=== PATIENT | female | born 1950 | race African-American/Black ===

== ENCOUNTER 2016-09-15 10:10 | Emergency (ER) | payer OTHER ==
[~2016-09-15] VITALS: Ht 162.6 cm; Wt 73.0 kg
[2016-09-15] MEDS ORDERED: NOR5 PO (10:34)
[2016-09-15] MEDS ORDERED: ASPIRIN FOR CHI81 M1 PO (10:35)
[2016-09-15] MEDS ORDERED: LIPI20 PO (10:36)
[2016-09-15] MEDS ORDERED: LOSARTAN POTAS100 M1 PO (10:36)
[2016-09-15] MEDS ORDERED: DULERA1 AR2 (10:37)
[2016-09-15] MEDS ORDERED: POLYCARBOPHIL (10:37)
[2016-09-15] MEDS ORDERED: ROFLUMILAST (10:38)
[2016-09-15] MEDS ORDERED: SPIRONOLACTONE25 MG PO (10:38)
[2016-09-15 10:50] LABS: BASOPHIL % 0.3 % (0-2); PLATELET COUNT 193 x10^3mcL (130-400); RED CELL DISTRIBUTION WIDTH 14.5 % (11.5-14.5)
[2016-09-15] MEDS ORDERED: TIOTROPIUM (10:50)
[2016-09-15] MEDS ORDERED: ACETAMINOPHEN (10:53)
[2016-09-15] MEDS ORDERED: TOLNAFTATE (10:53)
[2016-09-15 10:54] LABS: CALCIUM 9.4 mg/dL (8.5-10.1); CARBON DIOXIDE 28.8 mmol/L (21-32); CREATININE SERUM 1.1 mg/dL (0.6-1.0); POTASSIUM SERUM 3.7 mmol/L (3.5-5.1)
[2016-09-15] MEDS ORDERED: TOPCARE LAXATIVE5 MG PO (10:54)
[2016-09-15] MEDS ORDERED: CHLORPHENIRAMINE (10:55)
[2016-09-15] MEDS ORDERED: NITROGLYCERIN0.4 MG SL (10:56)
[2016-09-15] MEDS ORDERED: LEVALBUTEROL (10:56)
[2016-09-15 10:58] LABS: ALBUMIN 4.1 g/dL (3.4-5.0); BILIRUBIN TOTAL 0.37 mg/dL (0.20-1.00); TOTAL PROTEIN, SERUM 7.8 g/dL (6.4-8.2)
[2016-09-15 12:34] VITALS: BP 114/59
== END 2016-09-15 12:34 | disposition short-term general hospital (02) ==
LOC: ED 10:10
DX: R07.89 Other chest pain (principal); I10 Essential (primary) hypertension; J44.9 Chronic obstructive pulmonary disease, unspecified; Z86.79 Personal history of other diseases of the circulatory system
CPT/HCPCS: 80307; 83880; Q0092